=== PATIENT | male | born 1965 | race African-American/Black ===

== ENCOUNTER 2018-08-02 12:04 | Inpatient (IN) | payer BC ==
[2018-08-02 13:23] VITALS: BMI 23.2
--- NOTE | 2018-08-02 14:52 | HP ---
COWS - Scale Resting Pulse: 1= [place] 81-100 Sweatin= Chills/Flushing Restless Observation: 1= Difficult to Sit Still Pupil Size: 1= Pupils >than Normal Bone or Joint Aches: 1= Mild Discomfort Runny Nose/ Eye Tearin= Runny Nose/Eyes GI Upset > 30mins: 2= Nausea/Diarrhea Tremor Observation: 2= Slight Tremor Visible Yawning Observation: 2= >3x During Session Anxiety or Irritability: 2=Irritable/Anxious Goose Flesh Skin: 0=Smooth Skin COWS Score: 15 CIWA Score - Admission Criteria [facility]AS Guidelines: Admission for Medically Managed Detox: Requires at least one of the followin. CIWA greater than 12 2. Seizures within the past 24 hours 3. Delirium tremens within the past 24 hours 4. Hallucinations within the past 24 hours 5. Acute intervention needed for co occurring medical disorder 6. Acute intervention needed for co occurring psychiatric disorder 7. Severe withdrawal that cannot be handled at a lower level of care (continued vomiting, continued diarrhea, abnormal vital signs) requiring intravenous medication and/or fluids 8. Admission ROS [facility] - [facility] Chief Complaint: opiate withdrawal sx Allergies/Adverse Reactions: Allergies Allergy/AdvReac Type Severity Reaction Status Date / Time No Known Allergies Allergy Verified 08/02/18 14:52 History of Present Illness: 53 years old male with long history of opiate and cocaine misuse seeking Iopiate detox today denies medical issue denies psychiatric issue IV heroin both antecubital Exam Limitations: No Limitations - Ebola screening Have you traveled outside of the country in the last 21 days: No Have you had contact with anyone from an Ebola affected area: No Have you been sick,other than usual withdrawal symptoms: No Do you have a fever: No - Review of Systems Constitutional: No Symptoms Reported, Changes in sleep, Weight Stable EENT: reports: No Symptoms Reported Respiratory: reports: No Symptoms reported Cardiac: reports: No Symptoms Reported GI: reports: Nausea, Poor Fluid Intake, Indigestion, Abdominal cramping : reports: No Symptoms Reported Musculoskeletal: reports: Back Pain, Joint Pain, Joint Swelling (right knee), Muscle Pain Integumentary: reports: Change in Color (IN heroin sites), Dryness Neuro: reports: Tingling, Tremors Endocrine: reports: No Symptoms Reported Hematology: reports: No Symptoms Reported Psychiatric: reports: Judgement Intact, Mood/Affect Appropiate Other Systems: Reviewed and Negative Patient History - Patient Medical History Hx Anemia: No Hx Asthma: No Hx Chronic Obstructive Pulmonary Disease (COPD): No Hx Cancer: No Hx Cardiac Disorders: No Hx Congestive Heart Failure: No Hx Hypertension: No Hx Hypercholesterolemia: No Hx Pacemaker: No HX Cerebrovascular Accident: No Hx Seizures: No Hx Dementia: No Hx Diabetes: No Hx Gastrointestinal Disorders: No Hx Liver Disease: No Hx Genitourinary Disorders: No Hx Sexually Transmitted Disorders: No Hx Renal Disease (ESRD): No Hx Thyroid Disease: No Hx Human Immunodeficiency Virus (HIV): No Hx Hepatitis C: No Hx Depression: No Hx Suicide Attempt: No Hx Bipolar Disorder: No Hx Schizophrenia: No - Patient Surgical History Past Surgical History: No - PPD History Previous Implant?: Yes Documented Results: Negative w/o proof Implanted On Prior [facility] Admission?: No PPD to be Administered?: Yes - Smoking Cessation Smoking history: Current every day smoker Have you smoked in the past 12 months: Yes Aproximately how many cigarettes per day: 7 Hx Chewing Tobacco Use: No Initiated information on smoking cessation: Yes 'Breaking Loose' booklet given: 08/02/18 - Substance & Tx. History Hx Alcohol Use: No Hx Substance Use: Yes Substance Use Type: Heroin, Opiates Hx Substance Use Treatment: No Family Disease History - Family Disease History Family History: Denies Admission Physical Exam BHS - Vital Signs Vital Signs: Vital Signs - 24 hr 08/02/18 13:20 Temperature 98.6 F Pulse Rate 81 Respiratory 18 Rate Blood Pressure 131/86 - Physical General Appearance: Yes: Appropriately Dressed, Mild Distress, Thin, Tremorous, Irritable, Sweating, Anxious HEENTM: Yes: Hearing grossly Normal, Normocephalic, Normal Voice Respiratory: Yes: Chest Non-Tender, Lungs Clear, Normal Breath Sounds, No Respiratory Distress, No Accessory Muscle Use Neck: Yes: Supple, Trachea in good position Breast: Yes: Breasts Symetrical, No Discharge Cardiology: Yes: Regular Rhythm, Regular Rate, S1, S2 Abdominal: Yes: Non Tender, Flat, Soft, Decreased BS Genitourinary: Yes: Within Normal Limits Back: Yes: Normal Inspection Musculoskeletal: Yes: Gait Steady (with cane), Back pain, Joint Stiffness, Joint swelling (right knee), Muscle Pain Extremities: Yes: Non-Tender, Tremors, Swelling (right knee) Neurological: Yes: Alert, Normal Mood/Affect, Normal Response (sleepy), Depressed Affect Integumentary: Yes: Dry Lymphatic: Yes: Within Normal Limits - Diagnostic (1) Opioid dependence with withdrawal Current Visit: Yes Status: Acute (2) Nicotine dependence Current Visit: Yes Status: Acute Qualifiers: Nicotine product type: cigarettes Substance use status: in withdrawal Qualified Code(s): F17.213 - Nicotine dependence, cigarettes, with withdrawal (3) Swelling of right knee joint Current Visit: Yes Status: Chronic (4) Cocaine abuse Current Visit: Yes Status: Chronic (5) Substance induced mood disorder Current Visit: Yes Status: Suspected Cleared for Admission [facility] - Detox or Rehab [facility] Level of Care: Medically Managed Detox Regimen/Protocol: Methadone [facility] Breath Alcohol Content Breath Alcohol Content: 0 Urine Drug Screen - Results Drug Screen Negative: No Urine Drug Screen Results: HITESH-Cocaine, OPI-Opiates, MTD-Methadone
[2018-08-02] MEDS ORDERED: P-EPHED 60MG/TRIPROLIDI 2.5MG TABLET PO PRN (15:05)
[2018-08-02] MEDS ORDERED: MAGNESIUM HYDROX 2400MG/30ML ORAL SUSPENSION 30 ML CUP PO PRN (15:05)
[2018-08-02] MEDS ORDERED: MAGNESIUM CITRATE 300 ML BOTTLE PO PRN (15:05)
[2018-08-02] MEDS ORDERED: MAG HYDROX/AL HYDROX/SIMETH 30 ML UNIT-DOSE CUP PO PRN (15:05)
[2018-08-02] MEDS ORDERED: LOPERAMIDE HCL 2 MG CAPSULE PO PRN (15:05)
[2018-08-02] MEDS ORDERED: MENTHOL/PHENOL 1 EACH UD MM PRN (15:05)
[2018-08-02] MEDS ORDERED: guaiFENesin/D-METHORPHAN HB 10 ML UNIT-DOSE CUPS PO PRN (15:05)
[2018-08-02] MEDS ORDERED: NICOTINE POLACRILEX 2 MG GUM BUC PRN (15:05)
[2018-08-02] MEDS ORDERED: ACETAMINOPHEN 325 MG TABLET (FP) PO PRN (15:05)
[2018-08-02] MEDS ORDERED: METHADONE HCL 10 MG TABLET (FOR DETOX USE ONLY) PO ONE ×2 (16:00→23:00)
[2018-08-02] MEDS: MINERAL OIL/PETROLAT/WATER TOPICAL CREAM 113 GM JAR TP SCH (17:00)
[2018-08-02] MEDS: diazePAM 5 MG TABLET PO PRN ×2 (17:03→22:29)
[2018-08-02] MEDS: NICOTINE 14 MG/24 HOURS TOPICAL PATCH TD SCH (17:04)
[2018-08-02] MEDS: IBUPROFEN 400 MG TABLET (FP) PO PRN (22:28)
[2018-08-02] MEDS: THIAMINE HCL 100 MG TABLET (FP) PO SCH (22:28)
[2018-08-03] MEDS ORDERED: METHADONE HCL 10 MG TABLET (FOR DETOX USE ONLY) PO ONE (10:00)
[2018-08-03] MEDS: MINERAL OIL/PETROLAT/WATER TOPICAL CREAM 113 GM JAR TP SCH (10:25)
[2018-08-03] MEDS: NICOTINE 14 MG/24 HOURS TOPICAL PATCH TD SCH (10:25)
[2018-08-03] MEDS: diazePAM 5 MG TABLET PO PRN (10:25)
[2018-08-03] MEDS: PRENATAL VITAMINS W/ FOLIC ACID TABLET (FP) PO SCH (10:25)
[2018-08-03 10:54] LABS: HEMATOCRIT 38.9 % (35.4-49); HEMOGLOBIN 13.4 GM/dL (11.7-16.9); MCH 33.8 pg (25.7-33.7); MCHC 34.5 g/dl (32.0-35.9); MEAN CELL VOLUME 97.8 fl (80-96); PLATELET COUNT 245 K/MM3 (134-434); RBC 3.97 M/mm3 (4.00-5.60); RDW 14.4 % (11.9-15.9); WHITE BLOOD COUNT 6.9 K/mm3 (4.0-10.0)
[2018-08-03] MEDS ORDERED: BACLOFEN 10 MG TABLET (FP) PO ONE (10:58)
--- NOTE | 2018-08-03 10:59 | PN ---
BHS COWS - Scale Resting Pulse: 0= CO 80 or Below Sweatin= Chills/Flushing Restless Observation: 1= Difficult to Sit Still Pupil Size: 1= Pupils >than Normal Bone or Joint Aches: 2= Severe Diffuse Aches Runny Nose/ Eye Tearin= Nasal Congestion GI Upset > 30mins: 1= Stomach Cramp Tremor Observation of Outstretched Hands: 2= Slight Tremor Visible Yawning Observation: 2= >3x During Session Anxiety or Irritability: 2=Irritable/Anxious Goose Flesh Skin: 0=Smooth Skin COWS Score: 13 BHS Progress Note (SOAP) Subjective: back pain body aches joints pain tremor anxiety Objective: 08/03/18 11:00 Vital Signs Temperature 98.4 F 08/03/18 09:08 Pulse Rate 77 08/03/18 09:08 Respiratory Rate 18 08/03/18 09:08 Blood Pressure 154/100 08/03/18 09:08 O2 Sat by Pulse Oximetry (%) Laboratory Last Values WBC 6.9 K/mm3 (4.0-10.0) 08/03/18 05:45 RBC 3.97 M/mm3 (4.00-5.60) L 08/03/18 05:45 Hgb 13.4 GM/dL (11.7-16.9) 08/03/18 05:45 Hct 38.9 % (35.4-49) 08/03/18 05:45 MCV 97.8 fl (80-96) H 08/03/18 05:45 MCH 33.8 pg (25.7-33.7) H 08/03/18 05:45 MCHC 34.5 g/dl (32.0-35.9) 08/03/18 05:45 RDW 14.4 % (11.9-15.9) 08/03/18 05:45 Plt Count 245 K/MM3 (134-434) 08/03/18 05:45 MPV 9.0 fl (7.5-11.1) 08/03/18 05:45 lab noted 08/03/18 11:03 hypertension begin lisinopril 10 mg Assessment: 08/03/18 11:03 withdrawal sx hypertension chronic back pain Plan: continue detox lisinopril 10 mg po daily lidocain patch
[2018-08-03] MEDS: LIDOCAINE 5% TOPICAL PATCH TP SCH (11:12)
[2018-08-03 11:31] LABS: ALBUMIN 3.2 g/dl (3.4-5.0); ALK PHOS 65 U/L (45-117); ANION GAP 8 MMOL/L (8-16); BILIRUBIN,TOTAL 0.5 mg/dL (0.2-1); BLOOD UREA NITROGEN 22 mg/dL (7-18); CALCIUM 8.7 mg/dL (8.5-10.1); CHLORIDE 108 mmol/L (98-107); CO2 26 mmol/L (21-32); GLUCOSE,RANDOM 110 mg/dL (74-106); POTASSIUM 4.3 mmol/L (3.5-5.1); SGOT/AST 38 U/L (15-37); SGPT/ALT 34 U/L (13-61); SODIUM 142 mmol/L (136-145); TOT PROT 6.7 g/dl (6.4-8.2)
[2018-08-03] MEDS: LISINOPRIL 10 MG TABLET (FP) PO SCH (11:52)
[2018-08-03] MEDS: LIDOCAINE PATCH REMOVAL MC SCH (23:00)
[2018-08-03] MEDS: THIAMINE HCL 100 MG TABLET (FP) PO SCH (23:01)
[2018-08-04] MEDS: diazePAM 5 MG TABLET PO PRN ×2 (06:32→22:15)
--- NOTE | 2018-08-04 09:47 | PN ---
BHS COWS - Scale Resting Pulse: 0= MD 80 or Below Sweatin= Chills/Flushing Restless Observation: 1= Difficult to Sit Still Pupil Size: 1= Pupils >than Normal Bone or Joint Aches: 2= Severe Diffuse Aches Runny Nose/ Eye Tearin= Nasal Congestion GI Upset > 30mins: 1= Stomach Cramp Tremor Observation of Outstretched Hands: 1= Tremor [place], Not Seen Yawning Observation: 1= 1-2x During Session Anxiety or Irritability: 1=Feels Anxious/Irritable Goose Flesh Skin: 0=Smooth Skin COWS Score: 10 S Progress Note (SOAP) Subjective: back pain joints pain muscle cramping tremor sweating Objective: 08/04/18 09:46 Vital Signs Temperature 97.7 F 08/04/18 09:17 Pulse Rate 109 H 08/04/18 09:17 Respiratory Rate 20 08/04/18 09:17 Blood Pressure 127/76 08/04/18 09:17 O2 Sat by Pulse Oximetry (%) Laboratory Last Values WBC 6.9 K/mm3 (4.0-10.0) 08/03/18 05:45 RBC 3.97 M/mm3 (4.00-5.60) L 08/03/18 05:45 Hgb 13.4 GM/dL (11.7-16.9) 08/03/18 05:45 Hct 38.9 % (35.4-49) 08/03/18 05:45 MCV 97.8 fl (80-96) H 08/03/18 05:45 MCH 33.8 pg (25.7-33.7) H 08/03/18 05:45 MCHC 34.5 g/dl (32.0-35.9) 08/03/18 05:45 RDW 14.4 % (11.9-15.9) 08/03/18 05:45 Plt Count 245 K/MM3 (134-434) 08/03/18 05:45 MPV 9.0 fl (7.5-11.1) 08/03/18 05:45 Sodium 142 mmol/L (136-145) 08/03/18 05:45 Potassium 4.3 mmol/L (3.5-5.1) 08/03/18 05:45 Chloride 108 mmol/L (98-107) H 08/03/18 05:45 Carbon Dioxide 26 mmol/L (21-32) 08/03/18 05:45 Anion Gap 8 MMOL/L (8-16) 08/03/18 05:45 BUN 22 mg/dL (7-18) H 08/03/18 05:45 Creatinine 1.0 mg/dL (0.55-1.3) 08/03/18 05:45 Creat Clearance w eGFR > 60 (>60) 08/03/18 05:45 Random Glucose 110 mg/dL (74-106) H 08/03/18 05:45 Calcium 8.7 mg/dL (8.5-10.1) 08/03/18 05:45 Total Bilirubin 0.5 mg/dL (0.2-1) 08/03/18 05:45 AST 38 U/L (15-37) H 08/03/18 05:45 ALT 34 U/L (13-61) 08/03/18 05:45 Alkaline Phosphatase 65 U/L (45-117) 08/03/18 05:45 Total Protein 6.7 g/dl (6.4-8.2) 08/03/18 05:45 Albumin 3.2 g/dl (3.4-5.0) L 08/03/18 05:45 RPR Titer Nonreactive (NONREACTIVE) 08/03/18 05:45 lab noted Assessment: 08/04/18 09:46 withdrawal sx Plan: continue detox
[2018-08-04] MEDS ORDERED: METHADONE HCL 5 MG TABLET (FOR DETOX USE ONLY) PO ONE (10:00)
[2018-08-04] MEDS: NICOTINE 14 MG/24 HOURS TOPICAL PATCH TD SCH (10:20)
[2018-08-04] MEDS: LISINOPRIL 10 MG TABLET (FP) PO SCH (10:20)
[2018-08-04] MEDS: LIDOCAINE 5% TOPICAL PATCH TP SCH (10:20)
[2018-08-04] MEDS: MINERAL OIL/PETROLAT/WATER TOPICAL CREAM 113 GM JAR TP SCH (10:20)
[2018-08-04] MEDS: PRENATAL VITAMINS W/ FOLIC ACID TABLET (FP) PO SCH (10:20)
[2018-08-04] MEDS ORDERED: NICOTINE 14 MG/24 HOURS TOPICAL PATCH TD ONE (14:03)
[2018-08-04] MEDS: LIDOCAINE PATCH REMOVAL MC SCH (22:12)
[2018-08-04] MEDS: THIAMINE HCL 100 MG TABLET (FP) PO SCH (22:14)
[2018-08-04] MEDS: IBUPROFEN 400 MG TABLET (FP) PO PRN (22:15)
[2018-08-04] MEDS: MELATONIN 5 MG TABLETS PO PRN (22:15)
--- NOTE | 2018-08-05 09:41 | PN ---
BHS Progress Note (SOAP) Subjective: body ache muscle cramping tremor anxiety Objective: 08/05/18 09:40 Vital Signs Temperature 95.9 F L 08/05/18 09:14 Pulse Rate 93 H 08/05/18 09:14 Respiratory Rate 20 08/05/18 09:14 Blood Pressure 113/76 08/05/18 09:14 O2 Sat by Pulse Oximetry (%) Laboratory Last Values WBC 6.9 K/mm3 (4.0-10.0) 08/03/18 05:45 RBC 3.97 M/mm3 (4.00-5.60) L 08/03/18 05:45 Hgb 13.4 GM/dL (11.7-16.9) 08/03/18 05:45 Hct 38.9 % (35.4-49) 08/03/18 05:45 MCV 97.8 fl (80-96) H 08/03/18 05:45 MCH 33.8 pg (25.7-33.7) H 08/03/18 05:45 MCHC 34.5 g/dl (32.0-35.9) 08/03/18 05:45 RDW 14.4 % (11.9-15.9) 08/03/18 05:45 Plt Count 245 K/MM3 (134-434) 08/03/18 05:45 MPV 9.0 fl (7.5-11.1) 08/03/18 05:45 Sodium 142 mmol/L (136-145) 08/03/18 05:45 Potassium 4.3 mmol/L (3.5-5.1) 08/03/18 05:45 Chloride 108 mmol/L (98-107) H 08/03/18 05:45 Carbon Dioxide 26 mmol/L (21-32) 08/03/18 05:45 Anion Gap 8 MMOL/L (8-16) 08/03/18 05:45 BUN 22 mg/dL (7-18) H 08/03/18 05:45 Creatinine 1.0 mg/dL (0.55-1.3) 08/03/18 05:45 Creat Clearance w eGFR > 60 (>60) 08/03/18 05:45 Random Glucose 110 mg/dL (74-106) H 08/03/18 05:45 Calcium 8.7 mg/dL (8.5-10.1) 08/03/18 05:45 Total Bilirubin 0.5 mg/dL (0.2-1) 08/03/18 05:45 AST 38 U/L (15-37) H 08/03/18 05:45 ALT 34 U/L (13-61) 08/03/18 05:45 Alkaline Phosphatase 65 U/L (45-117) 08/03/18 05:45 Total Protein 6.7 g/dl (6.4-8.2) 08/03/18 05:45 Albumin 3.2 g/dl (3.4-5.0) L 08/03/18 05:45 RPR Titer Nonreactive (NONREACTIVE) 08/03/18 05:45 lab noted Assessment: 08/05/18 09:40 withdrawal sx Plan: continue detox
[2018-08-05] MEDS ORDERED: METHADONE HCL 5 MG TABLET (FOR DETOX USE ONLY) PO ONE (10:00)
[2018-08-05] MEDS ORDERED: METHADONE HCL 10 MG TABLET (FOR DETOX USE ONLY) PO ONE (10:00)
[2018-08-05] MEDS: NICOTINE 14 MG/24 HOURS TOPICAL PATCH TD SCH (11:01)
[2018-08-05] MEDS: MINERAL OIL/PETROLAT/WATER TOPICAL CREAM 113 GM JAR TP SCH (11:01)
[2018-08-05] MEDS: LISINOPRIL 10 MG TABLET (FP) PO SCH (11:03)
[2018-08-05] MEDS: PRENATAL VITAMINS W/ FOLIC ACID TABLET (FP) PO SCH (11:03)
[2018-08-05] MEDS: LIDOCAINE 5% TOPICAL PATCH TP SCH ×2 (11:48)
[2018-08-05] MEDS ORDERED: LIDOCAINE PATCH REMOVAL MC SCH (22:00)
[2018-08-05] MEDS: MELATONIN 5 MG TABLETS PO PRN (22:25)
[2018-08-05] MEDS: THIAMINE HCL 100 MG TABLET (FP) PO SCH (22:25)
[2018-08-05] MEDS: LIDOCAINE PATCH REMOVAL MC SCH (22:26)
[2018-08-06] MEDS ORDERED: METHADONE HCL 5 MG TABLET (FOR DETOX USE ONLY) PO ONE (06:00)
[2018-08-06 09:17] VITALS: BP 107/79; PULSE 95; TEMP 98
--- NOTE | 2018-08-06 09:49 | PN ---
BHS Progress Note (SOAP) Subjective: I feel better Objective: 08/06/18 09:48 Vital Signs Temperature 98.0 F 08/06/18 09:16 Pulse Rate 95 H 08/06/18 09:16 Respiratory Rate 18 08/06/18 09:16 Blood Pressure 107/79 08/06/18 09:16 O2 Sat by Pulse Oximetry (%) Laboratory Tests 08/03/18 08/03/18 08/03/18 05:45 05:45 05:45 WBC 6.9 RBC 3.97 L Hgb 13.4 Hct 38.9 MCV 97.8 H MCH 33.8 H MCHC 34.5 RDW 14.4 Plt Count 245 MPV 9.0 Sodium 142 Potassium 4.3 Chloride 108 H Carbon Dioxide 26 Anion Gap 8 BUN 22 H Creatinine 1.0 Creat Clearance w eGFR > 60 Random Glucose 110 H Calcium 8.7 Total Bilirubin 0.5 AST 38 H ALT 34 Alkaline Phosphatase 65 Total Protein 6.7 Albumin 3.2 L RPR Titer Nonreactive pt aox3 in nad ambulating Assessment: 08/06/18 09:48 detox completed Plan: d/c home
--- NOTE | 2018-08-06 09:52 | DS ---
[facility] Detox Discharge Summary Admission Date: 08/02/18 Discharge Date: 08/06/18 - History Present History: Cocaine Dependence, Opioid Dependence - Physical Exam Results Vital Signs: Vital Signs Temperature 98.0 F 08/06/18 09:16 Pulse Rate 95 H 08/06/18 09:16 Respiratory Rate 18 08/06/18 09:16 Blood Pressure 107/79 08/06/18 09:16 O2 Sat by Pulse Oximetry (%) - Treatment Hospital Course: Detox Protocol Followed, Detoxed Safely, Responded well, Discharged Condition Good - Medication Discharge Medications: Ambulatory Orders NK [No Known Home Medication] 08/02/18 - Diagnosis (1) Nicotine dependence Current Visit: Yes Status: Chronic Qualifiers: Nicotine product type: cigarettes Substance use status: in withdrawal Qualified Code(s): F17.213 - Nicotine dependence, cigarettes, with withdrawal (2) Opioid dependence with withdrawal Current Visit: Yes Status: Chronic (3) Cocaine abuse Current Visit: Yes Status: Chronic - AMA Did Patient Leave Against Medical Advice: No
[2018-08-06] MEDS ORDERED: METHADONE HCL 10 MG TABLET (FOR DETOX USE ONLY) PO ONE (10:00)
[2018-08-06] MEDS: LIDOCAINE 5% TOPICAL PATCH TP SCH ×2 (10:18→10:19)
[2018-08-06] MEDS: NICOTINE 14 MG/24 HOURS TOPICAL PATCH TD SCH (10:20)
[2018-08-07] MEDS ORDERED: METHADONE HCL 5 MG TABLET (FOR DETOX USE ONLY) PO ONE (06:00)
== END 2018-08-06 10:25 | disposition home or self-care (01) | DRG 773 ==
LOC: YASAS 12:04 → Y3N 15:30
PROVIDERS: ADMIT Neuromusculoskeletal Medicine & OMM; ATTEND Neuromusculoskeletal Medicine & OMM
PROC: HZ2ZZZZ Detoxification Services for Substance Abuse Treatment (ICD-10-PCS; principal; 2018-08-02)
DX: F11.23 Opioid dependence with withdrawal (principal); F14.10 Cocaine abuse, uncomplicated; F17.213 Nicotine dependence, cigarettes, with withdrawal; F19.24 Other psychoactive substance dependence with psychoactive substance-induced mood disorder; I10 Essential (primary) hypertension; M25.461 Effusion, right knee; M54.9 Dorsalgia, unspecified; G89.29 Other chronic pain; Z59.0 Homelessness
CPT/HCPCS: 36415; 80053; 85027; 86593; J0475